=== PATIENT | male | born 1970 | race African-American/Black ===

== ENCOUNTER 2025-07-17 15:37 | Outpatient (CLI) | payer BC, SELFPAY ==
--- NOTE | ~2025-07-17 | XR_ITS ---
EXAMINATION: XR shoulder LT min 2V, 07/17/2025 15:50 CDT HISTORY: Pain in left shoulder after fall 11 weeks ago COMPARISON: No comparisons available. Findings: No acute fracture or malalignment. Moderate degenerative changes Soft tissues unremarkable. Impression: No acute fracture or malalignment. Reviewed, dictated and finalized at location P. Impression: No acute fracture or malalignment.
== END 2025-07-17 15:38 | disposition home or self-care (01) ==
LOC: MICIMG 15:41
PROVIDERS: PCP Family Medicine Adolescent Medicine; Visit Provider Family Medicine Adolescent Medicine
DX: M25.512 Pain in left shoulder (principal)
CPT/HCPCS: 73030